=== PATIENT | female | born 1965 | race Caucasian/White ===

== ENCOUNTER → 2016-10-21 | Outpatient (CLI) | payer OTHER ==
[~2016-10-21] MED LIST: B12; CELEBREX200 MG; CINNAMON500 MG PO; CLEOCIN300 MG PO; CLINDAMYCIN HC300 MG PO; CYCLOBENZAPRINE5 MG PO; DILAUDID2 MG PO; DOXYCYCLINE HY100 MG PO; ERGOCALCIF50000 UNIT PO; FENOFIBRATE160 M1 PO; FENOFIBRATE48 MG PO; FENOFIBRATE54 M1; GLUCOPHAGE1000 MG PO; HUMALOG100 UNIT/2 SC; HYDROCODON-ACE1 EAC7 PO; INVOKANA300 MG PO; IRON; IRON325 M1 PO; LISINOPRIL10 MG; LISINOPRIL5 MG PO; LOFIBRA,TRIGLI160 MG PO; METFORMIN HCL1000 M1; METFORMIN HCL1000 MG PO; PHENTERMINE H37.5 MG PO; PRILOSEC OTC20 MG PO; RIFAMPIN300 MG PO; TRAMADOL HCL50 MG PO; TRESIBA FL200 UNIT/1 SC; TRULICITY1.5 MG/0.5 SC; TYLENOL EXTRA500 MG PO; VANCOMYCIN HCL1 GM IV; VITAMIN B12-FO1 EACH PO; VITAMIN B122500 MCG PO; VITAMIN D31000 UNI1 PO; ZYVOX600 MG PO
== END | disposition home or self-care (01) ==
LOC: PICC 13:30
DX: M86.9 Osteomyelitis, unspecified (principal); L03.90 Cellulitis, unspecified; B95.62 Methicillin resistant Staphylococcus aureus infection as the cause of diseases classified elsewhere
CPT/HCPCS: 76937

== ENCOUNTER 2016-12-20 11:30 | Emergency (ER) | payer OTHER ==
[~2016-12-20] VITALS: Ht 165.1 cm; Wt 123.1 kg
[2016-12-20 14:47] VITALS: BP 143/75
[2016-12-20] MEDS ORDERED: AUGMENTIN875 MG PO (14:47)
== END 2016-12-20 14:48 | disposition home or self-care (01) ==
LOC: EXP 11:30 → EME 11:30 → EXP 14:48
DX: S80.02XA Contusion of left knee, initial encounter (principal); S40.021A Contusion of right upper arm, initial encounter; W18.30XA Fall on same level, unspecified, initial encounter
CPT/HCPCS: 73030; 73564; 99281; 99283; J1885

== ENCOUNTER → 2017-04-23 | Outpatient (CLI) | payer OTHER ==
[~2017-04-23] MED LIST changes: +AUGMENTIN875 MG PO
== END | disposition home or self-care (01) ==
LOC: PICC 14:00
DX: M86.9 Osteomyelitis, unspecified (principal); B96.4 Proteus (mirabilis) (morganii) as the cause of diseases classified elsewhere
CPT/HCPCS: 76937

== ENCOUNTER → 2017-07-21 | Outpatient (CLI) | payer OTHER | END | disposition home or self-care (01) | LOC: PICC 08:06 | DX: M86.10 Other acute osteomyelitis, unspecified site (principal) | CPT/HCPCS: 76937 ==

== ENCOUNTER 2017-09-11 14:28 | Inpatient (IN) | payer OTHER ==
[~2017-09-11] VITALS: Ht 165.1 cm; Wt 116.8 kg
[~2017-09-11 14:28] MED LIST changes: -LOFIBRA,TRIGLI160 MG PO; +MORPHINE SULFAT15 MG PO; +PRAVACHOL20 MG PO
[2017-09-11 15:33] LABS: BASOPHIL (%) 0.7 % (0-1); BASOPHIL COUNT 0.1 K/uL (0-0.1); EOSINOPHIL (%) 0.9 % (0-5); EOSINOPHIL COUNT 0.1 K/uL (0-0.3); HEMATOCRIT 41.1 % (36.0-46.0); HEMOGLOBIN 13.2 G/DL (11.9-15.5); IMMATURE GRANULOCYTE (%) 0.6 % (0.0-0.7); LYMPHOCYTE (%) 14.3 % (15-42); MCH 24.9 PG (29.0-34.0); MCHC 32.1 G/DL (30.0-36.0); MCV 77.5 FL (83-99); MONOCYTE (%) 5.7 % (3-12); MONOCYTE COUNT 0.4 K/uL (0-0.8); NEUTROPHIL (%) 77.8 % (45-76); NEUTROPHIL COUNT 5.4 K/uL (1.8-6.4); PLATELET COUNT 255 K/uL (156-360); RBC DIS.WIDTH-CV 15.3 % (11.8-14.6); RBC DIS.WIDTH-SD 42.5 % (39-53); WHITE BLOOD COUNT 6.9 K/uL (4.1-10.2)
[2017-09-11 15:48] LABS: CHLORIDE 99 mEq/L (99-109); POTASSIUM 4.2 mEq/L (3.7-5.4); SODIUM 131 mEq/L (136-147)
[2017-09-11 15:49] LABS: GLUCOSE 389 mg/dL (70-99)
[2017-09-11 15:53] LABS: CREATININE 0.8 mg/dL (0.6-1.3); GFR ESTIMATE (CALCULATED) > 59 mL/min/
[2017-09-11 15:54] LABS: UREA NITROGEN (BUN) 12 mg/dL (9-23)
[2017-09-12 06:12] LABS: CHLORIDE 106 mEq/L (99-109); POTASSIUM 3.7 mEq/L (3.7-5.4); SODIUM 136 mEq/L (136-147)
[2017-09-12 06:13] LABS: GLUCOSE 238 mg/dL (70-99)
[2017-09-12 06:15] LABS: BASOPHIL (%) 0.7 % (0-1); EOSINOPHIL (%) 3.4 % (0-5); EOSINOPHIL COUNT 0.2 K/uL (0-0.3); HEMATOCRIT 35.4 % (36.0-46.0); IMMATURE GRANULOCYTE (%) 0.9 % (0.0-0.7); LYMPHOCYTE (%) 33.3 % (15-42); LYMPHOCYTE COUNT 1.9 K/uL (1.0-2.8); MCH 24.4 PG (29.0-34.0); MCHC 31.1 G/DL (30.0-36.0); MCV 78.5 FL (83-99); MONOCYTE (%) 10.8 % (3-12); MONOCYTE COUNT 0.6 K/uL (0-0.8); NEUTROPHIL (%) 50.9 % (45-76); NEUTROPHIL COUNT 2.9 K/uL (1.8-6.4); PLATELET COUNT 224 K/uL (156-360); RBC DIS.WIDTH-CV 15.4 % (11.8-14.6); RBC DIS.WIDTH-SD 43.8 % (39-53); RED BLOOD COUNT 4.51 M/uL (3.80-5.20); WHITE BLOOD COUNT 5.6 K/uL (4.1-10.2)
[2017-09-12 06:17] LABS: CREATININE 0.7 mg/dL (0.6-1.3); GFR ESTIMATE (CALCULATED) > 59 mL/min/
[2017-09-12 06:18] LABS: UREA NITROGEN (BUN) 10 mg/dL (9-23)
[2017-09-12 15:10] VITALS: BP 110/57
[2017-09-13 00:55] VITALS: BP 135/80
[2017-09-13 07:09] LABS: HEMATOCRIT 38.9 % (36.0-46.0); HEMOGLOBIN 12.1 G/DL (11.9-15.5); MCH 24.3 PG (29.0-34.0); MCHC 31.1 G/DL (30.0-36.0); MCV 78.3 FL (83-99); PLATELET COUNT 272 K/uL (156-360); RBC DIS.WIDTH-CV 15.4 % (11.8-14.6); RBC DIS.WIDTH-SD 43.3 % (39-53); RED BLOOD COUNT 4.97 M/uL (3.80-5.20)
[2017-09-13 07:29] LABS: C-REACTIVE PROTEIN 99.8 MG/L (0-10); CHLORIDE 99 MEQ/L (99-109); CREATININE 0.5 MG/DL (0.6-1.3); GFR ESTIMATE (CALCULATED) > 59 mL/min/; GLUCOSE 283 mg/dL (70-99); MAGNESIUM 1.8 mg/dl (1.3-2.7); POTASSIUM 4.3 MEQ/L (3.7-5.4); SODIUM 134 MEQ/L (136-147); UREA NITROGEN (BUN) 12 mg/dL (9-23)
[2017-09-13 07:38] VITALS: BP 126/60
[2017-09-13 08:15] LABS: ERTH.SED.RATE 125 MM/HR (0-30)
[2017-09-13 16:17] VITALS: BP 155/64
[2017-09-13 16:20] VITALS: BP 138/62
[2017-09-14 00:57] VITALS: BP 101/59
[2017-09-14 07:13] LABS: HEMATOCRIT 35.1 % (36.0-46.0); MCH 24.7 PG (29.0-34.0); MCHC 31.3 G/DL (30.0-36.0); MCV 78.9 FL (83-99); PLATELET COUNT 251 K/uL (156-360); RBC DIS.WIDTH-CV 15.4 % (11.8-14.6); RBC DIS.WIDTH-SD 43.9 % (39-53); RED BLOOD COUNT 4.45 M/uL (3.80-5.20); WHITE BLOOD COUNT 5.7 K/uL (4.1-10.2)
[2017-09-14 07:19] VITALS: BP 104/55
[2017-09-14 07:21] LABS: INTER. NORMALIZED RATIO 1.2
[2017-09-14 07:24] LABS: PTT 30.4 SEC (25-37)
[2017-09-14 07:36] LABS: CHLORIDE 103 MEQ/L (99-109); CREATININE 0.4 MG/DL (0.6-1.3); GFR ESTIMATE (CALCULATED) > 59 mL/min/; GLUCOSE 182 mg/dL (70-99); POTASSIUM 4.2 MEQ/L (3.7-5.4); SODIUM 136 MEQ/L (136-147); UREA NITROGEN (BUN) 8 mg/dL (9-23)
[2017-09-14 07:39] LABS: HEMOGLOBIN A1c (GLYCOHEMOGLOB) 11.4 % HGB (Below 5.7)
[2017-09-14 13:48] VITALS: BP 113/65
[2017-09-14 15:02] VITALS: BP 123/69
[2017-09-14 19:22] LABS: HEMATOCRIT 33.4 % (36.0-46.0); HEMOGLOBIN 10.3 G/DL (11.9-15.5); MCV 79.3 FL (83-99)
[2017-09-14 23:40] VITALS: BP 157/63
[2017-09-15 06:13] LABS: HEMATOCRIT 31.9 % (36.0-46.0); HEMOGLOBIN 9.6 G/DL (11.9-15.5); MCH 23.9 PG (29.0-34.0); MCHC 30.1 G/DL (30.0-36.0); MCV 79.6 FL (83-99); PLATELET COUNT 279 K/uL (156-360); RBC DIS.WIDTH-CV 15.8 % (11.8-14.6); RBC DIS.WIDTH-SD 45.3 % (39-53); RED BLOOD COUNT 4.01 M/uL (3.80-5.20); WHITE BLOOD COUNT 6.4 K/uL (4.1-10.2)
[2017-09-15 06:44] LABS: CHLORIDE 106 MEQ/L (99-109); CREATININE 0.6 MG/DL (0.6-1.3); GFR ESTIMATE (CALCULATED) > 59 mL/min/; GLUCOSE 187 mg/dL (70-99); POTASSIUM 4.1 MEQ/L (3.7-5.4); SODIUM 141 MEQ/L (136-147); UREA NITROGEN (BUN) 11 mg/dL (9-23)
[2017-09-15 07:41] VITALS: BP 127/69
[2017-09-15 15:58] VITALS: BP 113/58
[2017-09-16 00:04] VITALS: BP 99/56
[2017-09-16 08:13] VITALS: BP 101/56
[2017-09-16 11:48] VITALS: BP 123/76
[2017-09-16 16:19] VITALS: BP 145/63
[2017-09-17 00:57] VITALS: BP 132/84
[2017-09-17 07:19] VITALS: BP 116/57
[2017-09-17] MEDS ORDERED: SENNA PLUS TAB1 EACH PO (09:29)
[2017-09-17] MEDS ORDERED: POLYETHYLENE GL17 GM PO (09:29)
[2017-09-17 15:17] VITALS: BP 139/71
[2017-09-18 00:09] VITALS: BP 160/71
[2017-09-18 08:11] VITALS: BP 125/81
== END 2017-09-18 17:33 | DRG 617 ==
LOC: DELPENDDIS → EME 14:28 → EDOF 23:16 → 5SOUTH 23:16 → ENRESERV 23:20 → EDOF 09-12 00:20 → ENRESERV 09-12 06:24 → 5SOUTH 09-12 15:02 → ENPENDDIS 09-17 10:00 → 5SOUTH 09-18 17:33
PROVIDERS: Family Medicine; Hospitalist; Internal Medicine; Physician Assistant; Podiatrist Foot & Ankle Surgery
PROC: 0Y6M0Z8 Detachment at Right Foot, Complete 5th Ray, Open Approach (ICD-10-PCS; principal; 2017-09-14)
DX: E11.69 Type 2 diabetes mellitus with other specified complication (principal); M86.671 Other chronic osteomyelitis, right ankle and foot; R78.81 Bacteremia; L03.115 Cellulitis of right lower limb; B95.61 Methicillin susceptible Staphylococcus aureus infection as the cause of diseases classified elsewhere; E11.621 Type 2 diabetes mellitus with foot ulcer; L97.414 Non-pressure chronic ulcer of right heel and midfoot with necrosis of bone; L97.522 Non-pressure chronic ulcer of other part of left foot with fat layer exposed; I10 Essential (primary) hypertension; K21.9 Gastro-esophageal reflux disease without esophagitis; E11.42 Type 2 diabetes mellitus with diabetic polyneuropathy; E11.610 Type 2 diabetes mellitus with diabetic neuropathic arthropathy; M14.671 Charcot's joint, right ankle and foot; M14.672 Charcot's joint, left ankle and foot; E11.65 Type 2 diabetes mellitus with hyperglycemia; E66.01 Morbid (severe) obesity due to excess calories; G89.29 Other chronic pain; D64.9 Anemia, unspecified; Z68.41 Body mass index [BMI] 40.0-44.9, adult; Z23 Encounter for immunization; Z88.2 Allergy status to sulfonamides; Z88.5 Allergy status to narcotic agent; Z79.4 Long term (current) use of insulin; Z86.14 Personal history of Methicillin resistant Staphylococcus aureus infection; Z98.1 Arthrodesis status
CPT/HCPCS: 36415; 71045; 73630; 73720; 80048; 82728; 82948; 83036; 83540; 83605; 83735; 84466; 85014; 85018; 85025; 85027; 85610; 85651; 85730; 86140; 87040; 87070; 87075; 87077; 87147; 87186; 87205; 87801; 90686; 93971; 96365; 96374; 99281; 99284; J0131; J0692; J1170; J1200; J1650; J1815; J1885; J2250; J2270; J2405; J2550; J2997; J3010; J3370; J7030; J7050; S0020; S0032